=== PATIENT | female | born 1995 | race Two or more races ===

== ENCOUNTER 2020-01-27 16:00 | Emergency (ER) | payer MEDICAID ==
[~2020-01-27] VITALS: Ht 162.6 cm; Wt 104.5 kg
[2020-01-27 16:05] VITALS: BP 135/81
[2020-01-27] MEDS ORDERED: NAPR-56 PO (16:39)
[2020-01-27] MEDS ORDERED: SULF1TAB49 PO (16:39)
--- NOTE | 2020-01-27 16:45 | NUR ---
Patient seen and assessed by provider.
== END 2020-01-27 16:51 | disposition home or self-care (01) ==
LOC: ER 16:02
DX: L03.116 Cellulitis of left lower limb (principal); F12.90 Cannabis use, unspecified, uncomplicated; Z59.0 Homelessness; Z88.0 Allergy status to penicillin; Z79.899 Other long term (current) drug therapy; Z88.8 Allergy status to other drugs, medicaments and biological substances
CPT/HCPCS: 99283